=== PATIENT | female | born 1970 | race Caucasian/White ===

== ENCOUNTER → 2017-04-27 15:34 | Outpatient (CLI) | payer MEDICAID ==
[2015-12-15 16:15] VITALS: BMI 26.7
[~2017-04-27 15:34] MED LIST: IBUPROFEN600 MG PO; IMITREX100 MG PO; MINIVELLE1 EAC1 TRANSDERM; PERCOCET 5-3251 TAB PO
== END | disposition home or self-care (01) ==
LOC: D.MAMMO 11:45
DX: Z12.31 Encounter for screening mammogram for malignant neoplasm of breast (principal)

== ENCOUNTER → 2018-07-14 23:27 | Outpatient (CLI) | payer MEDICAID ==
[2015-12-15 16:15] VITALS: BMI 26.7
== END | disposition home or self-care (01) ==
LOC: D.MAMMO 15:30
PROVIDERS: ATTEND Surgery
DX: Z12.31 Encounter for screening mammogram for malignant neoplasm of breast (principal)

== ENCOUNTER 2020-05-27 17:20 | Outpatient (CLI) | payer MEDICAID ==
[2015-12-15 16:15] VITALS: BMI 26.7
== END 2020-05-27 23:59 | disposition home or self-care (01) ==
LOC: D.MAMMO 17:20
PROVIDERS: ATTEND Family Medicine
DX: Z12.31 Encounter for screening mammogram for malignant neoplasm of breast (principal)